=== PATIENT | male | born 1970 | race Caucasian/White ===

== ENCOUNTER 2024-06-03 09:11 | Emergency (ER) | payer BC ==
[2024-06-03] MEDS ORDERED: HEPARIN 5000 UNIT/ML 1 ML VIAL ONE (09:26)
[2024-06-03] MEDS ORDERED: HEPARIN/D5W 25,000 UNIT/500 ML BAG IV ONE (09:26)
[2024-06-03] MEDS ORDERED: CLOPIDOGREL 75 MG TABLET ONE (09:27)
[2024-06-03] MEDS ORDERED: ASPIRIN 81 MG CHEWABLE TABLET ONE (09:27)
[2024-06-03] MEDS ORDERED: MORPHINE 2 MG/ML SYR ONE (09:34)
[2024-06-03 09:43] LABS: Absolute Basophils 0.1 K/uL (0-0.5); Absolute Eosinophils 0.1 K/uL (0-0.5); Absolute Lymphocytes (CBC) 3.2 K/uL (0.7-4.9); Absolute Neutrophil 6.5 K/uL (1.8-8.0); Basophils % 0.6 % (0-1.3); Eosinophils % 0.7 % (0-4.4); Hematocrit 46.8 % (39.6-49.0); Lymphocytes % 29.8 % (15.3-44.8); MCH 32.4 pg (27.0-35.0); MCHC 34.1 g/dL (32.0-36.0); MCV 94.8 fL (80-100); MPV 8.4 fL (7.6-11.3); Monocytes % 9.3 % (3.3-12.3); Neutrophils % 59.6 % (41.7-73.7); Nucleated Red Blood Cells % 0.1 % (0-0); Platelets 234 thou/uL (152-406); RBC Red Blood Cell Count 4.94 M/uL (4.33-5.43); Red Cell Distribution Width 13.9 % (12.1-15.2)
--- NOTE | 2024-06-03 09:50 | ER ---
Nurse's Notes [facility] Name: Jason Sims Age: 53 yrs Sex: Male : 1970 Arrival Date: 06/03/2024 Time: 09:11 Bed 17 Private MD: Diagnosis: ST elevation (STEMI) myocardial infarction of inferior wall Presentation: 06/03 09:25 Chief complaint: Patient states: sudden onset of CP and L arm pain that began 45 ss minutes ago while putting up a ceiling pain. Coronavirus screen: Client denies travel out of the [place] in the last 14 days. Ebola Screen: Patient denies exposure to infectious person. Patient denies travel to an Ebola-affected area in the 21 days before illness onset. Initial Sepsis Screen: Does the patient meet any 2 criteria? No. Patient's initial sepsis screen is negative. Does the patient have a suspected source of infection? No. Patient's initial sepsis screen is negative. Risk Assessment: Do you want to hurt yourself or someone else? Patient reports no desire to harm self or others. Onset of symptoms was June 03, 2024. 09:25 Method Of Arrival: Ambulatory ss 09:25 Acuity: JORDAN 1 ss Historical: - Allergies: 09:27 No Known Allergies; ss - Home Meds: 09:27 None [Active]; ss - PMHx: 09:27 None; ss - PSHx: 09:27 Skin grafting; ss - Infectious Disease History:: Denies. - Social history:: Smoking status: Patient reports the use of cigarette tobacco products, smokes one pack cigarettes per day. - Family history:: not pertinent. - Hospitalizations: : No recent hospitalization is reported. Vital Signs: 09:24 Weight 84.82 kg; db 09:25 BP 130 / 78; Pulse 87; Resp 18; Temp 97.8; Pulse Ox 100% on R/A; Weight 84.82 kg; hb Height 5 ft. 11 in. ; Pain 7/10; 09:25 Body Mass Index 26.08 (84.82 kg, 180.34 cm) hb 09:25 Pain Scale: Adult hb ED Course: 09:11 Patient arrived in ED. im 09:12 Marvel Story MD is Attending Physician. rn 09:22 Kaylin Solano RN is Primary Nurse. db 09:27 Triage completed. ss 09:27 Arm band placed on right wrist. ss 09:30 Oxygen administration via nasal cannula \T\ 2L/min. hb 09:32 Initial lab(s) drawn, by me, sent to lab. Inserted saline lock: 18 gauge in right hb antecubital area, using aseptic technique. Blood collected. Flushed with 10 mL NS. 09:33 Inserted saline lock: 20 gauge in left antecubital area, using aseptic technique. hb Flushed with 10 mL NS. 09:36 Carmen Mims, RN is Primary Nurse. hb 09:36 Basic Metabolic Panel Sent. hb 09:36 CBC with Diff Sent. hb 09:36 NT PRO-BNP Sent. hb 09:36 PT-INR Sent. hb 09:36 Troponin HS Sent. hb 10:21 XRAY Chest (1 view) In Process Unspecified. EDMS Administered Medications: 09:30 Drug: Heparin (AR-Bolus No thrombolytic) - HEParin IVP 60 units/kg IVP once; Max 5000 db units {Co-Signature: kassandra (Carmen Mims RN).} Route: IVP; Site: right antecubital; 09:30 Drug: Heparin (AR Drip) 12 units/kg/[place] - ([place] [address] units, D5W IV 500 ml) IV at db calculated rate Per protocol; Max initial rate 1000 units/hr {Co-Signature: kassandra (Carmen Mims RN).} {Note: started at 1000 UNITS/HR.} Route: IV; Rate: calculated rate; Site: right antecubital; 09:30 Drug: Aspirin PO Chewable Tablet 324 mg PO once; 81 mg tablets x 4 Route: PO; db 09:34 Drug: Clopidogrel PO 75 mg PO once Route: PO; db 09:39 Drug: morphine IVP or IV 2 mg IVP once over 4 mins Route: IVP; Infused Over: 4 mins; db Site: right antecubital; Outcome: 09:50 ER care complete, transfer ordered by . rn 10:46 Patient left the ED. hb Signatures: Dispatcher [employer] EDMS Marvel Story MD MD rn Blanchard, Shelby, RN RN Carmen Mims, MAGO RN hb Kaylin Solano RN RN db Tamra Gómez Mims, Carmen RN hb
--- NOTE | 2024-06-03 09:50 | EDPHYS ---
Physician Documentation [facility] Name: Jason Sims Age: 53 yrs Sex: Male : 1970 Arrival Date: 06/03/2024 Time: 09:11 Bed 17 Private MD: ED Physician Marvel Sotry HPI: 06/03 09:29 This 53 yrs old Male presents to ER via Ambulatory with complaints of Chest Pain, rn Shortness Of Breath, Arm Pain. 09:29 The patient or guardian reports chest pain that is located primarily in the substernal rn area. Onset: 45 minute(s) ago. The pain radiates to the left arm. Associated signs and symptoms: Pertinent positives: nausea, shortness of breath. The chest pain is described as a heaviness, a pressure. Severity of pain: At its worst the pain was moderate in the emergency department the pain is unchanged. The patient has not experienced similar symptoms in the past. Patient reports negative stress test 2 months ago. Has been having intermittent chest pain and began to have worsening chest pain today while working on a fan. Radiates to the left arm and associated with shortness of breath and nausea with diaphoresis.. Historical: - Allergies: 09: No Known Allergies; ss - Home Meds: : None [Active]; ss - PMHx: : None; ss - PSHx: 09:27 Skin grafting; ss - Infectious Disease History:: Denies. - Social history:: Smoking status: Patient reports the use of cigarette tobacco products, smokes one pack cigarettes per day. - Family history:: not pertinent. - Hospitalizations: : No recent hospitalization is reported. ROS: 09:29 Constitutional: Negative for fever, chills, and weight loss, Cardiovascular: Positive rn for chest pain Respiratory: Positive for shortness of breath Abdomen/GI: Positive for nausea MS/Extremity: Negative for injury and deformity, Neuro: Negative for headache, weakness, numbness, tingling, and seizure, Exam: 09:29 Constitutional: This is a well developed, well nourished patient who is awake, alert, rn appears anxious Cardiovascular: Regular rate and rhythm. No pulse deficits. Respiratory: Mild tachypnea Abdomen/GI: Soft, non-tender MS/ Extremity: Pulses equal, no cyanosis. Neurovascular intact. Full, normal range of motion. Equal circumference. Neuro: Awake and alert, GCS 15 09:29 ECG was reviewed by the Attending Physician. rn Vital Signs: 09:24 Weight 84.82 kg; db 09:25 BP 130 / 78; Pulse 87; Resp 18; Temp 97.8; Pulse Ox 100% on R/A; Weight 84.82 kg; hb Height 5 ft. 11 in. 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 Addison, states unable to Patient at this time and recommends transfer for STEMI.. 09:31 ED course: Initiated transfer to [facility] for STEMI, waiting on callback.. rn 09:48 Differential diagnosis: acute myocardial infarction, acute pericarditis, anxiety, rn coronary artery disease. HEART Score: History: Highly Suspicious (2), ECG: Significant ST-deviation (2), Age: > 45 and < 65 years (1), Risk Factors: 1 or 2 risk factors (1), Troponin: Total Score = 6. The patient was given aspirin in the Emergency Department. Data reviewed: vital signs, nurses notes, lab test result(s), EKG, radiologic studies, plain films, and as a result, I will admit patient. Consideration of Admission/Observation Patient was admitted/placed on observation. Escalation of care including admission/observation considered. Counseling: I had a detailed discussion with the patient and/or guardian regarding the historical points, exam findings, and any diagnostic results supporting the discharge/admit diagnosis, lab results, radiology results, the need for further work-up and treatment in the hospital, the need to transfer to another facility. ED course: I personally spent 35 minutes engaged in work directly related to the individual patient's care. This does not include any time spent performing procedures. The patient has been deemed critically ill because of acute ST elevation ME, requiring multiple IV medications, heparinization, organization of STEMI activation and transfer along with [facility]. 06/03 09:13 Order name: Basic Metabolic Panel; Complete Time: 10:43 rn 06/03 09:13 Order name: CBC with Diff; Complete Time: 10:43 rn 06/03 09:13 Order name: NT PRO-BNP; Complete Time: 10:43 rn 06/03 09:13 Order name: PT-INR; Complete Time: 10:43 rn 06/03 09:13 Order name: Troponin HS; Complete Time: 10:43 rn 06/03 09:40 Order name: PTT, Activated Partial Thromb; Complete Time: 10:43 EDMS 06/03 09:13 Order name: XRAY Chest (1 view) rn 06/03 09:13 Order name: Cardiac monitoring; Complete Time: :35 rn 06/03 09:13 Order name: EKG - Nurse/Tech; Complete Time: :35 rn 06/03 09:13 Order name: IV Saline Lock; Complete Time: :35 rn 06/03 09:13 Order name: Labs collected and sent; Complete Time: :35 rn 06/03 09:13 Order name: O2 Per Protocol; Complete Time: 09:36 rn 06/03 09:13 Order name: O2 Sat Monitoring; Complete Time: :36 rn EC:29 Rate is 76 beats/min. Rhythm is regular. QRS [place] is Normal. [place] interval is normal. QRS rn interval is normal. QT interval is normal. ST Segment is elevated in leads II, III, aVF. ST Segment is depressed in leads I, aVL. Clinical impression: Acute ME. Interpreted by me. Reviewed by me. Administered Medications: 09:30 Drug: Heparin (ME-Bolus No thrombolytic) - HEParin IVP 60 units/kg IVP once; Max 5000 db units {Co-Signature: kassandra (Carmen Mims RN).} Route: IVP; Site: right antecubital; :30 Drug: Heparin (ME Drip) 12 units/kg/[place] - ([place] [address] units, D5W IV 500 ml) IV at db calculated rate Per protocol; Max initial rate 1000 units/hr {Co-Signature: hb (Camren Mims RN).} {Note: started at 1000 UNITS/HR.} Route: IV; Rate: calculated rate; Site: right antecubital; 09:30 Drug: Aspirin PO Chewable Tablet 324 mg PO once; 81 mg tablets x 4 Route: PO; db 09:34 Drug: Clopidogrel PO 75 mg PO once Route: PO; db 09:39 Drug: morphine IVP or IV 2 mg IVP once over 4 mins Route: IVP; Infused Over: 4 mins; db Site: right antecubital; Disposition: 09:48 Critical Care:. rn Disposition Summary: 06/03/24 09:50 Transfer Ordered Notes: Transfer Location: [facility] rn Reason: Higher level of care rn Condition: Fair rn Problem: new rn Symptoms: have improved rn Accepting Physician: Dr. 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 Total time: 35 rn minutes Signatures: Dispatcher [employer] EDMarvel Hodge MD MD rn Blanchard, Shelby RN RN ss Carmen Mims RN RN Kaylin Solano RN MAGO db Carmen Mims RN Corrections: (The following items were deleted from the chart) 09:13 09:13 BASIC METABOLIC PANEL+C.LAB.BRZ ordered. EDMS EDMS 09:13 09:13 CBC+H.LAB.BRZ ordered. EDMS EDMS 09:13 09:13 PROBNP+C.LAB.BRZ ordered. EDMS EDMS 09:13 09:13 PROTIME (+INR)+COAG.LAB.BRZ ordered. EDMS EDMS 09:13 09:13 Troponin High Sensitivity+C.LAB.BRZ ordered. EDMS EDMS 09:13 09:13 Chest Single View+RAD.RAD.BRZ ordered. EDMS EDMS 09:40 09:34 PTT, ACTIVATED+COAG.LAB.BRZ ordered. EDMS EDMS 10:46 09:50 Dr. Dennison rn hb
[2024-06-03 09:53] LABS: PT Prothrombin Time 10.8 SECONDS (9.4-12.5); PTT, Activated Partial Thromb 28.5 SECONDS (24.3-36.9); Protime INR 1.03
[2024-06-03 09:59] LABS: Troponin High Sensitivity 47.6 pg/mL (<58.9)
--- NOTE | 2024-06-03 10:44 | RAD REPORT ---
EXAMINATION: ONE VIEW CHEST XR CLINICAL INDICATION: CHEST PAIN TECHNIQUE: Frontal chest projection is submitted. Examination is limited by patient positioning and t echnique. COMPARISON: No prior exam. FINDINGS: Mild bilateral pulmonary opacities likely representing edema or pneumonia. The heart is normal in siz e. No displaced fractures identified.
[2024-06-04 02:41] VITALS: BP 130/78; TEMP 97.8; O2SAT 100
--- NOTE | 2024-06-06 12:13 | EKG ---
Test Date: 2024-06-03 Test Time: 09:20:32 Director Credit Risk: AKIN MEASUREMENT RESULTS: Intervals: Rate: 76 WV: 166 QRSD: 92 QT: 360 QTc: 405 [place]: P: 58 WV: 166 QRS: 53 T: 86 INTERPRETIVE STATEMENTS: Normal sinus rhythm with sinus arrhythmia Inferior-posterior infarct, possibly acute ACUTE NM Consider right ventricular involvement in acute inferior infarct Abnormal ECG No previous ECG available for comparison Electronically Signed On 06-06-24 12:11:03 MASTER CONTROL ENGINEER by Ede Montelongo
== END 2024-06-03 10:46 | disposition short-term general hospital (02) ==
LOC: ER 09:11
DX: I21.19 ST elevation (STEMI) myocardial infarction involving other coronary artery of inferior wall (principal); F17.210 Nicotine dependence, cigarettes, uncomplicated
CPT/HCPCS: 93005; 85025; 80048; 36415; 85610; 85730; 84484; 83880; 71045; 96375; 96374; 99285; J1644; J2270